=== PATIENT | female | born 1990 | race African-American/Black ===

== ENCOUNTER 2024-02-05 13:57 | Emergency (ER) | payer BC ==
[~2024-02-05] VITALS: Ht 170.2 cm; Wt 72.9 kg
[2024-02-05 15:19] VITALS: BP 121/75; PULSE 65; RESP 15; TEMP 98.7; O2SAT 98
== END 2024-02-05 15:40 | disposition home or self-care (01) ==
LOC: ER 13:57
DX: M25.572 Pain in left ankle and joints of left foot (principal)